=== PATIENT | male | born 1960 | race Caucasian/White ===

== ENCOUNTER 2024-06-04 16:41 | Emergency (ER) | payer MEDICARE, SELFPAY ==
[2024-06-04 17:28] VITALS: BP 169/99; PULSE 70; RESP 18; TEMP 36.7; O2SAT 97; BMI 26.6
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
[2024-06-04 19:03] VITALS: BP 191/103; PULSE 53; RESP 17; O2SAT 97
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
[2024-06-04 19:34] VITALS: BP 187/109; PULSE 53; O2SAT 97
== END 2024-06-04 19:37 | disposition home or self-care (01) ==
PROVIDERS: Emergency Provider Emergency Medicine
DX: S00.03XA Contusion of scalp, initial encounter (principal); V89.2XXA Person injured in unspecified motor-vehicle accident, traffic, initial encounter
CPT/HCPCS: 70450; 72125; 99284